=== PATIENT | male | born 1950 | race Caucasian/White ===

== ENCOUNTER → 2016-06-17 | Outpatient (CLI) | payer BC ==
[~2016-06-17] MED LIST: ATOR-26 PO; CHOL200027 PO; CYAN100048 PO; GLC500 PO; IBUP200C14 PO; INSDGI SC; INSUINJ8 SC; LISI-461 PO; NVLGI7030 SC; SIMV40TA2 PO
[2016-06-17 11:19] LABS: ALT/SGPT 22 U/L (12-78); BLOOD UREA NITROGEN 17 mg/dl (7-18); BUN/CREATININE RATIO 18.2 (10-20); CALCIUM 8.7 mg/dl (8.5-10.1); CARBON DIOXIDE 29 mmol/L (21-32); CHLORIDE 106 mmol/L (98-107); CHOLESTEROL 114 mg/dl (0-200); CREATININE 0.94 mg/dl (0.60-1.40); ESTIMATED AVERAGE GLUCOSE 212 mg/dl; GLUCOSE 166 mg/dl (70-99); HA1C FLAG Normal (Normal); POTASSIUM 4.1 mmol/L (3.5-5.1); SODIUM 140 mmol/L (136-145)
[2016-06-17 11:22] LABS: ALB/GLOB RATIO 1.2 (0.9-2); ALKALINE PHOSPHATASE 53 U/L (45-117); AST/SGOT 18 U/L (15-37); CHOLESTEROL/HDL RATIO 2.3; HDL CHOLESTEROL 49 mg/dl; LDL CHOLESTEROL CALCULATED 53 mg/dl; TRIGLYCERIDES 58 mg/dl (0-150); VERY LOW DENSITY LIPOPROT CALC 12 mg/dl
== END | disposition home or self-care (01) ==
LOC: C.LABBC 08:21
PROVIDERS: ATTEND Internal Medicine Endocrinology, Diabetes & Metabolism
DX: E78.5 Hyperlipidemia, unspecified (principal); E11.9 Type 2 diabetes mellitus without complications; E66.9 Obesity, unspecified; I10 Essential (primary) hypertension; E55.9 Vitamin D deficiency, unspecified; R20.0 Anesthesia of skin; R80.9 Proteinuria, unspecified; E11.42 Type 2 diabetes mellitus with diabetic polyneuropathy; E11.3599 Type 2 diabetes mellitus with proliferative diabetic retinopathy without macular edema, unspecified eye; B35.3 Tinea pedis; Z11.59 Encounter for screening for other viral diseases

== ENCOUNTER → 2016-09-29 | Outpatient (CLI) | payer BC ==
[2016-09-29 12:11] LABS: ESTIMATED AVERAGE GLUCOSE 214 mg/dl; HA1C FLAG Normal (Normal)
[2016-09-29 15:11] LABS: RATIO 28.8 mcg/mg (0-30.0)
== END | disposition home or self-care (01) ==
LOC: C.LAB1850 10:20
PROVIDERS: ATTEND Internal Medicine Endocrinology, Diabetes & Metabolism
DX: E66.9 Obesity, unspecified (principal); I10 Essential (primary) hypertension; E78.5 Hyperlipidemia, unspecified; E55.9 Vitamin D deficiency, unspecified; R20.0 Anesthesia of skin; R80.9 Proteinuria, unspecified; E11.42 Type 2 diabetes mellitus with diabetic polyneuropathy; E11.3599 Type 2 diabetes mellitus with proliferative diabetic retinopathy without macular edema, unspecified eye; E11.9 Type 2 diabetes mellitus without complications; B35.3 Tinea pedis

== ENCOUNTER → 2017-01-05 | Outpatient (CLI) | payer BC ==
[~2017-01-05] MED LIST changes: -ATOR-26 PO; -IBUP200C14 PO
[2017-01-05 13:01] LABS: ESTIMATED AVERAGE GLUCOSE 255 mg/dl; HA1C FLAG Normal (Normal)
== END | disposition home or self-care (01) ==
LOC: C.LAB1850 10:49
PROVIDERS: ATTEND Internal Medicine Endocrinology, Diabetes & Metabolism
DX: E11.9 Type 2 diabetes mellitus without complications (principal)

== ENCOUNTER → 2017-02-13 | Outpatient (CLI) | payer OTHER ==
--- NOTE | 2017-02-13 13:39 | DIAGNOSTIC IMAGING REPORT ---
L VENOUS DOPP LOWER EXT UNILAT HISTORY: 66 years-old Male LOWER LEG acute left lower extremity edema COMPARISON: None available TECHNIQUE: Multiple real-time sonographic images of the left lower extremity deep venous system were obtained assessing grayscale appearance, color and spectral flow FINDINGS: Mild nonspecific edema of the left calf. There is normal flow, augmentation, phasicity and compressibility of the left lower extremity deep venous system. IMPRESSION: Mild nonspecific edema without sonographic evidence of deep venous thrombosis. The above report was generated using voice recognition software. It may contain grammatical, syntax or spelling errors. Electronically signed by: Carlos Costa M.D. 02/13/2017 1:37 PM Dictated Date/Time: 02/13/2017 1:36 PM
== END | disposition home or self-care (01) ==
LOC: C.ULTRBC 12:52
PROVIDERS: ATTEND Nurse Practitioner Adult Health
DX: M79.662 Pain in left lower leg (principal)

== ENCOUNTER 2022-10-10 15:49 | Inpatient (IN) ==
[2022-10-10] MEDS ORDERED: SODIUM CHLORIDE 0.9% 1000ML 500 ML IV ONE (16:30)
[2022-10-10] MEDS ORDERED: MoRPHine SULFATE 4 MG/ML 1 ML CARP\\VIAL IV STA (16:30)
[2022-10-10] MEDS ORDERED: ONDANSETRON INJ 2 MG/ML 2 ML VIAL IV STA (16:30)
--- NOTE | 2022-10-10 16:34 | Emergency Department Note ---
Impression & Plan Gastro-esophageal reflux disease with esophagitis, Nausea and vomiting, Diffuse abdominal pain, JEMAL (acute kidney injury) ED Provider Note CHIEF COMPLAINT: Abdominal pain, nausea and vomiting HISTORY OF PRESENTING ILLNESS: This is a 72-year-old male who presents to the emergency department by private vehicle with complaint of left-sided abdominal pain, nausea and vomiting that started 5 days ago. Patient states that he ate shrimp for dinner on evening and started to have pain after that and vomited several times. He states the pain has been constant, is not relieved after vomiting, and he rates the pain 8/10. He has taken Tums, Zantac, and Pepto-Bismol with minimal relief. He notes that he has been having a lot of sensations of indigestion with this as well and the vomiting is worse at night or lying down. He states he is mostly vomiting up what he has been eating and drinking and has not been able to keep food down for the past few days. He states no appetite. He is able to keep down fluids. He has not had a normal bowel movement for the past 5 days, has had small amounts of diarrhea. He denies any blood in the vomit or stool. He has not had any fevers or chills. He denies any chest pain, chest tightness, shortness of breath, dizziness or syncope. The patient denies any history of abdominal problems or previous abdominal surgeries. REVIEW OF SYSTEMS: A complete 10 point review of systems was reviewed with the patient with pertinent positives and negatives as per history of present illness. All else were negative. PAST MEDICAL HISTORY: Hypertension, dyslipidemia, hypothyroidism, type 2 diabetes, peripheral neuropathy, peripheral vascular disease, arterial stenosis SOCIAL HISTORY: Lives at home, he denies tobacco use ALLERGIES: No known drug allergies PHYSICAL EXAM: CONSTITUTIONAL: Pleasant and cooperative. No acute distress. Well appearing and well nourished. HEENT: Normocephalic, atraumatic. NECK: Supple, full active range of motion without discomfort. RESPIRATORY: Clear to auscultation bilaterally with no wheezing, crackles, rhonchi or stridor. Equal expansion bilaterally. CARDIOVASCULAR: Regular rate and rhythm with no murmurs, rubs or gallops. Normal peripheral perfusion. No edema. GASTROINTESTINAL: Diffuse tenderness across the left and mid upper abdomen, most tender in the left upper quadrant and epigastric region. No rebound tenderness or guarding. Abdomen is nontender tender in the right upper quadrant and right lower quadrant. Abdomen is soft and moderately distended, obese abdomen. No palpable masses or HSM. Ventral hernia noted. Bowel sounds present in all quadrants. No CVA tenderness bilaterally. MUSCULOSKELETAL: Full range of motion of all joints without discomfort. INTEGUMENTARY: No rash or other significant dermatologic conditions noted. NEUROLOGIC: Alert and oriented X 4 with normal affect. Normal strength and sensation in all 4 extremities. Normal speech. Normal gait observed. ED COURSE AND MEDICAL DECISION MAKING: CC: Patient presenting with complaint of abdominal pain DIFFERENTIAL DIAGNOSIS: Includes, but not limited to gastroenteritis, foodborne illness, gastritis, GERD, pancreatitis, cholecystitis, cholelithiasis, small bowel obstruction, acute coronary syndrome, electrolyte imbalance, dehydration, among others. INTERPRETATION OF LABS: No leukocytosis, no anemia, normal platelets, hypercalcemia, no other significant electrolyte abnormalities, mildly elevated creatinine, normal liver enzymes and lipase. Troponin negative. UA negative for infection. COVID-negative. EKG: Indication is abdominal pain. Shows normal sinus rhythm with a rate of 73 bpm, normal intervals, no ST elevation or depression, no ectopy, no significant change when compared to previous EKG from 10/27/2013 by my interpretation. MEDICATION RECONCILIATION: I attest that I have personally reviewed the patient's current medication list. INITIAL VITAL SIGNS REVIEW: I reviewed the patient's initial vital signs and interpret them as follows: T: Afebrile; BP: Normotensive; HR: Within normal limits; RR: Within normal limits; Pulse Ox: Within normal limits on room air. MDM SUMMARY: Patient was evaluated at bedside, history and physical exam performed. Patient is alert and oriented, in no acute distress, resting calmly in the stretcher. Patient is afebrile and nontoxic-appearing. He is not actively vomiting, but does complain of nausea. Abdominal tenderness diffusely through the left side and across the mid abdomen, most tender in left upper quadrant. No acute abdomen. Initial orders were performed under critical pathways by nursing staff, EKG and labs performed. EKG reviewed showing normal sinus rhythm with no acute ischemic changes. Additional orders were placed for IV morphine to treat pain, IV Zofran for nausea, IV fluid bolus for hydration, and CT abdomen/pelvis to evaluate abdominal pain. Lab order for troponin was also added. Patient discussed with Dr. Marinelli, who also evaluated the patient and agrees with my assessment, plan, and disposition. Labs and imaging reviewed, labs notable for hypercalcemia and mild JEMAL. CT imaging noting nonspecific wall thickening of the distal esophagus and gastroesophageal junction which could indicate infectious or inflammatory process, or an underlying lesion. Also note of subcentimeter periesophageal and gastrohepatic lymph nodes and cholelithiasis with no bowel obstruction. Patient reassessed multiple times throughout ED stay, he has remained hemodynamically stable and afebrile, he has not been actively vomiting but continues to complain of upper abdominal discomfort and nausea. Dr. Marinelli and myself discussed at length with the patient regarding his results and the option of admission regarding his hypercalcemia of unclear etiology, the patient was agreeable to admission. The patient is being admitted by the [facility]. COVID testing was negative. Patient was stable at the time of admission. The chart was completed utilizing [employer] Speech voice recognition software. Grammatical errors, random word insertions, pronoun errors, and incomplete sentences are an occasional consequence of this system due to software limitations, ambient noise, and hardware issues. Any formal questions or concerns about the content, text, or information contained within the body of this dictation should be directly addressed to the nurse practitioner for clarification. Past Med/Surg History Surgical History History of lithotripsy S/P carpal tunnel release S/P wisdom tooth extraction Family History Unknown Cancer Father Diabetes Brother Colorectal cancer Denies family history of Ovarian cancer Prostate cancer Myocardial infarction Breast cancer Social History Smoking Status: Never smoker Second Hand Exposure: No; Do You Dip or Chew Tobacco: No; Hx Alcohol Use: Yes Alcohol type: beer Alcohol Intake Frequency: 2-4 x/Month Alcohol Intake Frequency Comment: 1-2 beers a week Hx Substance Use: No Preferred Language: Guyanese Communication Ability: Effective Visual Impairment: No Limitations Hearing Ability: Normal Broiler Supervisor Required: No Beliefs That Will Affect Care: None marital status: Current Living Situation: Spouse current occupational status: retired current occupation: used to drive truck Feels Safe at Home: Yes Childhood Exposure to Second-Hand Smoke: No Diet: regular caffeine: No during the past year weight has: remained stable Dental Care, Regularly: No Physical Activity Frequency: Does not Exercise Seatbelt Use: always Sunscreen Use: Yes Assistive Devices: Denture - Upper, Denture - Lower and Glasses Allergies Allergies Allergy/AdvReac Type Severity Reaction Status Date / Time No Known Drug Allergies Allergy Verified 10/10/22 18:45 Home Meds Home Medications Medication Instructions Recorded Confirmed cholecalciferol (vitamin D3) 125 5,000 units PO DAILY 12/03/18 10/10/22 mcg (5,000 unit) capsule hydrochlorothiazide 25 mg tablet 25 mg PO DAILY #30 tabs 12/03/18 10/10/22 lisinopril 40 mg tablet 40 mg PO DAILY #1 tab 12/03/18 10/10/22 metformin 1,000 mg tablet 1,000 mg PO BID 12/03/18 10/10/22 aspirin 81 mg tablet 81 mg PO DAILY 08/09/20 10/10/22 cyanocobalamin (vitamin B-12) 1,000 mcg PO DAILY 08/09/20 10/10/22 1,000 mcg tablet insulin aspart U-100 100 unit/mL 18 unit subcut BID 11/26/20 10/10/22 subcutaneous solution (Novolog U-100 Insulin aspart) insulin glargine 100 unit/mL 16 unit subcut HS 11/26/20 10/10/22 subcutaneous solution (Lantus U-100 Insulin) blood sugar diagnostic (Accu-Chek 01/23/22 10/10/22 Guide test strips) gabapentin 1 ea PO BID 01/23/22 10/10/22 insulin syringe-needle U-100 0.5 #10 ea 01/23/22 10/10/22 mL 31 gauge x 5/16" (BD Insulin Syringe Ultra-Fine) simvastatin 80 mg tablet 80 mg PO DAILY 08/14/22 10/10/22 Previous Rx's Medication Instructions Recorded levothyroxine 88 mcg tablet 88 mcg PO QAM #90 tabs 02/07/22 ezetimibe 10 mg tablet 10 mg PO DAILY #90 tabs 08/14/22 Results & Data (ED) Vital Signs Vital Signs - 24 hr 10/10/22 15:50 10/10/22 16:28 10/10/22 17:34 Temperature 36.1 C L Temperature Source Temporal Artery Scan Pulse Rate 89 Pulse Rate [Apical] 75 77 Respiratory Rate 18 20 20 Respiratory Effort / Characteristics Non-Labored Respiratory Depth Normal Blood Pressure 128/72 Blood Pressure [Right Arm] 138/62 137/56 L Blood Pressure Mean 90 Blood Pressure Mean [Right Arm] 87 83 Pulse Oximetry 98 96 98 Oxygen Delivery Method Room Air Room Air Room Air Sepsis Recent Fever Within 48 Hours No Sepsis New/Unexplained Change in Mental Status No Sepsis Action Taken by Nursing No Action Required 10/10/22 18:19 Temperature Temperature Source Pulse Rate Pulse Rate [Apical] 78 Respiratory Rate 20 Respiratory Effort / Characteristics Respiratory Depth Blood Pressure Blood Pressure [Right Arm] 142/65 H Blood Pressure Mean Blood Pressure Mean [Right Arm] 90 Pulse Oximetry 99 Oxygen Delivery Method Room Air Sepsis Recent Fever Within 48 Hours Sepsis New/Unexplained Change in Mental Status Sepsis Action Taken by Nursing Laboratory Data 10/10/22 16:04 10/10/22 16:04 Lab Results 10/10/22 10/10/22 10/10/22 Range/Units 16:04 16:04 19:46 WBC 8.18 (4.8-10.8) K/ul RBC 4.63 L (4.70-6.10) M/uL Hgb 15.0 (14.0-18.0) g/dl Hct 42.5 (42.0-52.0) % MCV 91.8 (80.0-100.0) fL MCH 32.4 (25.0-34.0) pg MCHC 35.3 (32.0-36.0) g/dL RDW Std Deviation 41.1 (36.4-46.3) fL RDW Coeff of Elsa 12.5 (11.5-14.5) % Plt Count 224 (130-400) K/uL MPV 11.9 (9.4-12.4) fL Immature Gran % (Auto) 0.4 % Neut % (Auto) 67.5 % Lymph % (Auto) 20.7 % [place] % (Auto) 9.9 % Eos % (Auto) 0.9 % Baso % (Auto) 0.6 % Neut # (Auto) 5.53 (1.40-6.50) K/uL Lymph # (Auto) 1.69 (1.2-3.4) K/uL [place] # (Auto) 0.81 H (0.11-0.59) K/uL Eos # (Auto) 0.07 (0-0.50) K/uL Baso # (Auto) 0.05 (0-0.2) K/uL Immature Gran # (Auto) 0.03 (0.01-0.20) K/uL Sodium 139 (136-145) mmol/L Potassium 3.9 (3.5-5.1) mmol/L Chloride 101 (98-107) mmol/L Carbon Dioxide 27 (21-32) mmol/L Anion Gap 11 (3-11) BUN 23 (6-23) mg/dl Creatinine 1.63 H (0.6-1.4) mg/dl Est Cr Clr Drug Dosing 45.4 ml/min Est GFR ( Amer) 48.1 ml/min Est GFR (Non-Af Amer) 41.5 ml/min BUN/Creatinine Ratio 14.1 (10-20) Glucose 125 H (70-99(Fasting)) mg/dl POC Glucose 74 (70-99) mg/dl Calcium 12.1 H* (8.6-10.3) mg/dl Total Bilirubin 0.7 (0.2-1.0) mg/dl AST 25 (13-39) U/L ALT 20 (7-52) U/L Alkaline Phosphatase 47 (34-104) U/L Troponin I High Sens 11.3 (0-20) pg/ml Total Protein 7.4 (6.0-8.3) gm/dl Albumin 4.5 (3.4-5.0) gm/dl Globulin 2.9 (2.5-4.0) gm/dl Albumin/Globulin Ratio 1.6 (0.9-2) Lipase 13 (11-82) U/L Urine Color Urine Appearance (Clear) Urine pH (4.5-7.5) Ur Specific [place] (1.000-1.030) Urine Protein (Negative) Urine Glucose (UA) (Negative) Urine Ketones (Negative) Urine Blood (Negative) Urine Nitrite (Negative) Urine Bilirubin (Negative) Urine Urobilinogen (Negative) Ur Leukocyte Esterase (Negative) Urine WBC (Auto) (0-5) /hpf Urine RBC (Auto) (0-4) /hpf U Hyaline Cast (Auto) (0-5) /lpf U Epithel Cells (Auto) (0-5) /lpf Urine Bacteria (Auto) (Negative) SARS-CoV-2, RNA, NAAT (NEGATIVE) 10/10/22 10/10/22 Range/Units 19:50 20:11 WBC (4.8-10.8) K/ul RBC (4.70-6.10) M/uL Hgb (14.0-18.0) g/dl Hct (42.0-52.0) % MCV (80.0-100.0) fL MCH (25.0-34.0) pg MCHC (32.0-36.0) g/dL RDW Std Deviation (36.4-46.3) fL RDW Coeff of Elsa (11.5-14.5) % Plt Count (130-400) K/uL MPV (9.4-12.4) fL Immature Gran % (Auto) % Neut % (Auto) % Lymph % (Auto) % [place] % (Auto) % Eos % (Auto) % Baso % (Auto) % Neut # (Auto) (1.40-6.50) K/uL Lymph # (Auto) (1.2-3.4) K/uL [place] # (Auto) (0.11-0.59) K/uL Eos # (Auto) (0-0.50) K/uL Baso # (Auto) (0-0.2) K/uL Immature Gran # (Auto) (0.01-0.20) K/uL Sodium (136-145) mmol/L Potassium (3.5-5.1) mmol/L Chloride (98-107) mmol/L Carbon Dioxide (21-32) mmol/L Anion Gap (3-11) BUN (6-23) mg/dl Creatinine (0.6-1.4) mg/dl Est Cr Clr Drug Dosing ml/min Est GFR ( Amer) ml/min Est GFR (Non-Af Amer) ml/min BUN/Creatinine Ratio (10-20) Glucose (70-99(Fasting)) mg/dl POC Glucose (70-99) mg/dl Calcium (8.6-10.3) mg/dl Total Bilirubin (0.2-1.0) mg/dl AST (13-39) U/L ALT (7-52) U/L Alkaline Phosphatase (34-104) U/L Troponin I High Sens (0-20) pg/ml Total Protein (6.0-8.3) gm/dl Albumin (3.4-5.0) gm/dl Globulin (2.5-4.0) gm/dl Albumin/Globulin Ratio (0.9-2) Lipase (11-82) U/L Urine Color Yellow Urine Appearance Clear (Clear) Urine pH 5.0 (4.5-7.5) Ur Specific [place] > 1.045 H (1.000-1.030) Urine Protein 1+ H (Negative) Urine Glucose (UA) Negative (Negative) Urine Ketones Negative (Negative) Urine Blood Negative (Negative) Urine Nitrite Negative (Negative) Urine Bilirubin Negative (Negative) Urine Urobilinogen Negative (Negative) Ur Leukocyte Esterase Negative (Negative) Urine WBC (Auto) 1-5 (0-5) /hpf Urine RBC (Auto) 0-4 (0-4) /hpf U Hyaline Cast (Auto) 1-5 (0-5) /lpf U Epithel Cells (Auto) 10-20 H (0-5) /lpf Urine Bacteria (Auto) Negative (Negative) SARS-CoV-2, RNA, NAAT NEGATIVE (NEGATIVE) Administered Medications Sodium Chloride (Nss 1000ml) 1,000 mls @ 100 mls/hr IV .Q10H TAVO Stop: 11/09/22 22:39 Last Admin: 10/10/22 23:19 Dose: 100 mls/hr Documented By: TMD Insulin Aspart (Insulin Aspart Per Unit Charge) 0 units SC ACHS TAVO Stop: 11/09/22 22:39 Last Admin: 10/10/22 22:50 Dose: Not Given Documented By: TMD Discontinued Medications Sodium Chloride (Nss 1000ml) 500 mls @ 999 mls/hr IV .Q31M ONE Stop: 10/10/22 17:00 Last Infusion: 10/10/22 17:12 Dose: 0 mls/hr Documented By: Admin: 10/10/22 16:41 Dose: 999 mls/hr Documented By: Sodium Chloride (Nss 1000ml) 1,000 mls @ 999 mls/hr IV .Q1H1M ONE Stop: 10/10/22 18:03 Last Infusion: 10/10/22 18:16 Dose: 0 mls/hr Documented By: Admin: 10/10/22 17:12 Dose: 999 mls/hr Documented By: Famotidine (Pepcid 20mg Iv Push) 20 mg in 5 mls @ 2.5 mls/min IV NOW STA Stop: 10/10/22 19:15 Last Admin: 10/10/22 19:43 Dose: 2.5 mls/min Documented By: EMILY Pantoprazole Sodium 40 mg/ (Syringe) 10 mls @ 5 mls/min IV NOW ONE Stop: 10/10/22 20:20 Last Admin: 10/10/22 20:45 Dose: 5 mls/min Documented By: MICHAEL Ioversol (Optiray 320 100ml) 94 ml IV ONCE ONE Stop: 10/10/22 17:54 Last Admin: 10/10/22 17:54 Dose: 94 ml Documented By: JIM Morphine Sulfate (Morphine Sulfate 4 Mg/Ml 1 Ml Carp\\Vial) 4 mg IV NOW STA Stop: 10/10/22 16:31 Last Admin: 10/10/22 16:40 Dose: 4 mg Documented By: Ondansetron HCl (Ondansetron Inj 2 Mg/Ml 2 Ml Vial) 4 mg IV NOW STA Stop: 10/10/22 16:31 Last Admin: 10/10/22 16:38 Dose: 4 mg Documented By: Ondansetron HCl (Ondansetron Inj 2 Mg/Ml 2 Ml Vial) 4 mg IV ONE ONE Stop: 10/10/22 20:20 Last Admin: 10/10/22 20:45 Dose: 4 mg Documented By: MICHAEL Imaging Data Radiologist's Impression: Abdomen/Pelvis CT 10/10/22 16:[address] WITH IV CONTRAST CT DOSE: 1382.12 mGy.cm HISTORY: Acute left-sided abdominal pain with nausea and vomiting left sided abd pain, n/v TECHNIQUE: Multiaxial CT images of the abdomen and pelvis were performed following the IV administration of 120 cc of Optiray, A dose lowering technique was utilized adhering to the principles of ALARA. COMPARISON STUDY: 12/15/2019 FINDINGS: Mild cardiomegaly. Clear lung bases. No pneumatosis or pneumoperitoneum. Unremarkable spleen, moderately atrophic pancreas and adrenal glands. Cholelithiasis. Probable hepatic steatosis. Patency of the hepatic and portal veins. Nonspecific bilateral perinephric stranding. No hydronephrosis. The urinary bladder wall thickening with partial collapse. Prostatomegaly. Ather osclerosis of the aorta. No lymphadenopathy. Circumferential wall thickening of the distal esophagus with mild periesophageal stranding. Mild thickening at the gastroesophageal junction. No bowel obstruction. Colonic diverticulosis. Normal appendix. Injection granulomata in the subcutaneous anterior abdominal wall. Subcentimeter gastrohepatic and periesophageal lymph nodes. No acute fracture. Degenerative changes of the spine, pelvis and hips. IMPRESSION: 1. Nonspecific wall thickening of the distal esophagus and gastroesophageal junction. Findings may be infectious or inflammatory however could be further evaluated with endoscopy to exclude an underlying lesion. 2. Subcentimeter periesophageal and gastrohepatic lymph nodes. 3. No bowel obstruction. 4. Cholelithiasis. 5. Additional findings as above. ACT 112: Negative or not required by law. The above report was generated using voice recognition software. It may contain grammatical, syntax or spelling errors. Electronically signed by: Maksim Costa M.D. 10/10/2022 7:02 PM Discharge Plan Visit Data Chief Complaint: GI Assessment Stated Complaint: INJESTION,VOMIT,NO APPETITE ED Provider: Dixon Marinelli ED Midlevel Provider: Keeley Sears Discharge Problem: Gastro-esophageal reflux disease with esophagitis, Nausea and vomiting, Diffuse abdominal pain, JEMAL (acute kidney injury) Patient Disposition: Admitted As Inpatient Condition: Good Discharge Instructions Interventions: ED Discharge Assessment Last Done: 10/10/22 21:51
[2022-10-10 16:37] LABS: Basophils # (auto) 0.05 K/uL (0-0.2); Basophils % (auto) 0.6 %; Eosinophils # (auto) 0.07 K/uL (0-0.50); Eosinophils % (auto) 0.9 %; Hematocrit (blood only) 42.5 % (42.0-52.0); Immature Granulocytes # (auto) 0.03 K/uL (0.01-0.20); Immature Granulocytes % (auto) 0.4 %; Lymphocytes # (auto) 1.69 K/uL (1.2-3.4); Lymphocytes % (auto) 20.7 %; Mean Corpuscular Hemoglobin 32.4 pg (25.0-34.0); Mean Corpuscular Hgb Conc 35.3 g/dL (32.0-36.0); Mean Corpuscular Volume 91.8 fL (80.0-100.0); Mean Platelet Volume 11.9 fL (9.4-12.4); Monocytes # (auto) 0.81 K/uL (0.11-0.59); Monocytes % (auto) 9.9 %; Neutrophils # (auto) 5.53 K/uL (1.40-6.50); Neutrophils % (auto) 67.5 %; Platelet Count 224 K/uL (130-400); RDW Coefficient of Variation 12.5 % (11.5-14.5); RDW Standard Deviation 41.1 fL (36.4-46.3); Red Blood Count 4.63 M/uL (4.70-6.10); White Blood Count 8.18 K/ul (4.8-10.8)
[2022-10-10 16:54] LABS: Albumin Globulin Ratio 1.6 (0.9-2); Albumin Level 4.5 gm/dl (3.4-5.0); BUN Creatinine Ratio 14.1 (10-20); Bilirubin,Total 0.7 mg/dl (0.2-1.0); Calcium 12.1 mg/dl (8.6-10.3); Creatinine Clr Calc Pharmacy 45.4 ml/min; Est GFR (African American) 48.1 ml/min; Est GFR (Non-African American) 41.5 ml/min; Globulin 2.9 gm/dl (2.5-4.0); Potassium 3.9 mmol/L (3.5-5.1); Total Protein 7.4 gm/dl (6.0-8.3)
[2022-10-10] MEDS ORDERED: SODIUM CHLORIDE 0.9% 1000ML 1,000 ML IV ONE (17:03)
[2022-10-10 17:16] LABS: Troponin I High Sensitivity 11.3 pg/ml (0-20)
[2022-10-10] MEDS ORDERED: OPTIRAY 320 100ml IV ONE (17:53)
--- NOTE | 2022-10-10 19:03 | CT Scan Report ---
ABDOMEN AND PELVIS CT WITH IV CONTRAST CT DOSE: 1382.12 mGy.cm HISTORY: Acute left-sided abdominal pain with nausea and vomiting left sided abd pain, n/v TECHNIQUE: Multiaxial CT images of the abdomen and pelvis were performed following the IV administrat ion of 120 cc of Optiray, A dose lowering technique was utilized adhering to the principles of ALARA . COMPARISON STUDY: 12/15/2019 FINDINGS: Mild cardiomegaly. Clear lung bases. No pneumatosis or pneumoperitoneum. Unremarkable splee n, moderately atrophic pancreas and adrenal glands. Cholelithiasis. Probable hepatic steatosis. Paten cy of the hepatic and portal veins. Nonspecific bilateral perinephric stranding. No hydronephrosis. T he urinary bladder wall thickening with partial collapse. Prostatomegaly. Atherosclerosis of the aort a. No lymphadenopathy. Circumferential wall thickening of the distal esophagus with mild periesophageal stranding. Mild thic kening at the gastroesophageal junction. No bowel obstruction. Colonic diverticulosis. Normal appendi x. Injection granulomata in the subcutaneous anterior abdominal wall. Subcentimeter gastrohepatic and periesophageal lymph nodes. No acute fracture. Degenerative changes of the spine, pelvis and hips. IMPRESSION: 1. Nonspecific wall thickening of the distal esophagus and gastroesophageal junction. Findings may be infectious or inflammatory however could be further evaluated with endoscopy to exclude an underlyin g lesion. 2. Subcentimeter periesophageal and gastrohepatic lymph nodes. 3. No bowel obstruction. 4. Cholelithiasis. 5. Additional findings as above. ACT 112: Negative or not required by law. The above report was generated using voice recognition software. It may contain grammatical, syntax o r spelling errors. Electronically signed by: Maksim Costa M.D. 10/10/2022 7:02 PM
[2022-10-10] MEDS ORDERED: FAMOTIDINE 20MG IV PUSH 20 MG/5 ML SYR IV STA (19:14)
[2022-10-10] MEDS ORDERED: PANTOprazole 40 MG in SYRINGE 0 ML IV ONE (20:19)
[2022-10-10] MEDS ORDERED: ONDANSETRON INJ 2 MG/ML 2 ML VIAL IV ONE (20:19)
[2022-10-10 20:23] LABS: Appearance Urine Clear (Clear); Bacteria Urine Automated Negative (Negative); Bilirubin Urine Negative (Negative); Blood Urine Negative (Negative); Color Urine Yellow; Glucose Urine UA Negative (Negative); Ketones Urine Negative (Negative); Leukocyte Esterase Urine Negative (Negative); Nitrite Urine Negative (Negative); Protein Urine 1+ (Negative); RBC Urine Automated 0-4 /hpf (0-4); Specific Gravity Urine > 1.045 (1.000-1.030); Urobilinogen Urine Negative (Negative)
--- NOTE | 2022-10-10 20:34 | History & Physical Report ---
Date of Service October 10, 2022 Assessment & Plan (1) Gastro-esophageal reflux disease with esophagitis: (2) Nausea and vomiting: (3) Diffuse abdominal pain: (4) JEMAL (acute kidney injury): (5) Dyslipidemia: (6) Hypertension: (7) Hypothyroidism: (8) Proliferative diabetic retinopathy associated with type 2 diabetes mellitus: (9) Diabetic peripheral neuropathy associated with type 2 diabetes mellitus: (10) Hypercalcemia: Plan Intractable nausea and vomiting with abdominal pain/distal esophageal and GE junction thickening- Likely toxin associated food poisoning amplifying diabetic gastroparesis CT scan abdomen pelvis does not show small bowel obstruction or ileus N.p.o. except essential medications Given famotidine 20 mg IV by the ED Add pantoprazole 40 mg IV now and then every 12 hours Zofran 4 mg IV every 6 hours as needed Question whether related to esophagitis associated vomiting, or pre-existing issue Consult gastroenterology Acute kidney injury on CKD- Creatinine 1.63 on admission, with base around 1.2, improved to 1.52, after receiving 2 liters normal saline Continue normal saline at 100 mils per hour Hold HCTZ and lisinopril Hypercalcemia- Calcium 12.2 on admission, improved to 10.5 after 2 L normal saline Continue normal saline at 100 mils per hour and follow laboratory serially Diabetes mellitus- Hold outpatient regimen Placed on Accu-Cheks with NovoLog SSI Hyperlipidemia- Hold simvastatin until taking orally okay Hypothyroidism- Hold levothyroxine until able to take pills without vomiting History of Present Illness Chief Complaint: The patient presents to the emergency department with complaint of 5 days of abdominal pain, nausea and vomiting that began a few hours after eating shrimp at dinner. Primary Care Provider: Kojo Soria DO The patient is a 72-year-old male with a past medical history including GERD, vitamin D deficiency, proliferative diabetic retinopathy, diabetes mellitus, hypothyroidism, hypertension, diabetic peripheral neuropathy, peripheral vascular disease, PAD, obesity and chronic low back pain. Patient presents to the emergency department with with persistent nausea and vomiting for the past 5 days that began a few hours after eating shrimp at a local restaurant. Significant laboratories: Glucose 125, creatinine 1.63, calcium 12.1 which improved to 10.[address] of abdomen and pelvis showed thickening of the distal esophagus and GE junction, with suggestion for EGD for confirmation, and paraesophageal and gastrohepatic lymph node enlargement. From the ED the patient received the following: Normal saline 2 L, morphine sulfate 4 mg IV, Zofran 4 mg IV. and famotidine 20 mg IV Allergies Allergy/AdvReac Type Severity Reaction Status Date / Time No Known Drug Allergies Allergy Verified 10/10/22 18:45 Home Medications Medication Instructions Recorded Confirmed Type cholecalciferol (vitamin D3) 125 5,000 units PO DAILY 12/03/18 10/10/22 History mcg (5,000 unit) capsule hydrochlorothiazide 25 mg tablet 25 mg PO DAILY #30 tabs 12/03/18 10/10/22 History lisinopril 40 mg tablet 40 mg PO DAILY #1 tab 12/03/18 10/10/22 History metformin 1,000 mg tablet 1,000 mg PO BID 12/03/18 10/10/22 History aspirin 81 mg tablet 81 mg PO DAILY 08/09/20 10/10/22 History cyanocobalamin (vitamin B-12) 1,000 mcg PO DAILY 08/09/20 10/10/22 History 1,000 mcg tablet insulin aspart U-100 100 unit/mL 18 unit subcut BID 11/26/20 10/10/22 History subcutaneous solution (Novolog U-100 Insulin aspart) insulin glargine 100 unit/mL 16 unit subcut HS 11/26/20 10/10/22 History subcutaneous solution (Lantus U-100 Insulin) blood sugar diagnostic (Accu-Chek 01/23/22 10/10/22 History Guide test strips) gabapentin 1 ea PO BID 01/23/22 10/10/22 History insulin syringe-needle U-100 0.5 #10 ea 01/23/22 10/10/22 History mL 31 gauge x 5/16" (BD Insulin Syringe Ultra-Fine) levothyroxine 88 mcg tablet 88 mcg PO QAM #90 tabs 02/07/22 10/10/22 Rx ezetimibe 10 mg tablet 10 mg PO DAILY #90 tabs 08/14/22 10/10/22 Rx simvastatin 80 mg tablet 80 mg PO DAILY 08/14/22 10/10/22 History Past Med/Surg History Surgical History History of lithotripsy S/P carpal tunnel release S/P wisdom tooth extraction Family History Unknown Cancer Father Diabetes Brother Colorectal cancer Denies family history of Ovarian cancer Prostate cancer Myocardial infarction Breast cancer Social History Smoking Status: Never smoker Second Hand Exposure: No; Do You Dip or Chew Tobacco: No; Hx Alcohol Use: Yes Alcohol type: beer Alcohol Intake Frequency: 2-4 x/Month Alcohol Intake Frequency Comment: 1-2 beers a week Hx Substance Use: No Preferred Language: Frisian Communication Ability: Effective Visual Impairment: No Limitations Hearing Ability: Normal Tax Auditor Required: No Beliefs That Will Affect Care: None marital status: Current Living Situation: Spouse current occupational status: retired current occupation: used to drive truck Feels Safe at Home: Yes Childhood Exposure to Second-Hand Smoke: No Diet: regular caffeine: No during the past year weight has: remained stable Dental Care, Regularly: No Physical Activity Frequency: Does not Exercise Seatbelt Use: always Sunscreen Use: Yes Assistive Devices: Denture - Upper, Denture - Lower and Glasses Review of Systems Review of Systems: The patient denies chest pain, palpitations, shortness of breath, dyspnea on exertion, cough, lower extremity swelling, sore throat, fevers, chills, sweats, diarrhea , constipation, blood in urine or stool, dysuria, urinary frequency or urgency, lightheadedness, dizziness, headache, memory loss, loss of consciousness, rash, abnormal bruising or bleeding, imbalance, focal or generalized weakness, numbness or tingling in arms, generalized arthralgias or myalgias, neck pain, or night sweats. The review of systems is otherwise negative other than for that already noted above, and at least 10 systems have been reviewed. Physical Exam Physical Exam: The patient is awake, alert and oriented 3, well developed and well nourished, normocephalic and atraumatic, lying in bed with a few episodes of vomiting while in the ED HEENT--PERRL, EOMI, mucous membranes and oropharynx dry. Neck--supple. No JVD. No bruits. Thyroid normal, trachea midline, no adenopathy. Heart--normal S1 and S2. No murmurs, rubs or gallops. Lungs--clear bilaterally, no respiratory distress, no accessory muscle use. Abdomen--normal bowel sounds and soft. Nontender. Nondistended, tympanitic Extremities--no cyanosis or clubbing. No edema. Dermatologic--normal skin turgor, normal color, no abnormal lymph nodes, no rash. Neurologic--cranial nerves II through XII grossly intact. Rheumatologic--normal range of motion. Psychiatric--normal affect. Results & Data Results & Data Vital Signs (Past 12 Hours) Vital Signs Temp Pulse Pulse Resp BP BP Pulse Ox 10/10/22 18:19 78 20 142/65 H 99 10/10/22 17:34 77 20 137/56 L 98 10/10/22 16:28 75 20 138/62 96 10/10/22 15:50 36.1 C L 89 18 128/72 98 O2 Del Method 10/10/22 18:19 Room Air 10/10/22 17:34 Room Air 10/10/22 16:28 Room Air 10/10/22 15:50 Room Air Laboratory Results Laboratory Results WBC 8.18 K/ul (4.8-10.8) 10/10/22 16:04 RBC 4.63 M/uL (4.70-6.10) L 10/10/22 16:04 Hgb 15.0 g/dl (14.0-18.0) 10/10/22 16:04 Hct 42.5 % (42.0-52.0) 10/10/22 16:04 MCV 91.8 fL (80.0-100.0) 10/10/22 16:04 MCH 32.4 pg (25.0-34.0) 10/10/22 16:04 MCHC 35.3 g/dL (32.0-36.0) 10/10/22 16:04 RDW Std Deviation 41.1 fL (36.4-46.3) 10/10/22 16:04 RDW Coeff of Elsa 12.5 % (11.5-14.5) 10/10/22 16:04 Plt Count 224 K/uL (130-400) 10/10/22 16:04 MPV 11.9 fL (9.4-12.4) 10/10/22 16:04 Immature Gran % (Auto) 0.4 % 10/10/22 16:04 Neut % (Auto) 67.5 % 10/10/22 16:04 Lymph % (Auto) 20.7 % 10/10/22 16:04 [place] % (Auto) 9.9 % 10/10/22 16:04 Eos % (Auto) 0.9 % 10/10/22 16:04 Baso % (Auto) 0.6 % 10/10/22 16:04 Neut # (Auto) 5.53 K/uL (1.40-6.50) 10/10/22 16:04 Lymph # (Auto) 1.69 K/uL (1.2-3.4) 10/10/22 16:04 [place] # (Auto) 0.81 K/uL (0.11-0.59) H 10/10/22 16:04 Eos # (Auto) 0.07 K/uL (0-0.50) 10/10/22 16:04 Baso # (Auto) 0.05 K/uL (0-0.2) 10/10/22 16:04 Immature Gran # (Auto) 0.03 K/uL (0.01-0.20) 10/10/22 16:04 Sodium 140 mmol/L (136-145) 10/10/22 20:57 Potassium 4.1 mmol/L (3.5-5.1) 10/10/22 20:57 Chloride 105 mmol/L (98-107) 10/10/22 20:57 Carbon Dioxide 26 mmol/L (21-32) 10/10/22 20:57 Anion Gap 9 (3-11) 10/10/22 20:57 BUN 23 mg/dl (6-23) 10/10/22 20:57 Creatinine 1.52 mg/dl (0.6-1.4) H 10/10/22 20:57 Est Cr Clr Drug Dosing 48.7 ml/min 10/10/22 20:57 Est GFR ( Amer) 52.3 ml/min 10/10/22 20:57 Est GFR (Non-Af Amer) 45.1 ml/min 10/10/22 20:57 BUN/Creatinine Ratio 15.1 (10-20) 10/10/22 20:57 Glucose 111 mg/dl (70-99(Fasting)) H 10/10/22 20:57 POC Glucose 112 mg/dl (70-99) H 10/10/22 22:21 Calcium 10.5 mg/dl (8.6-10.3) H 10/10/22 20:57 Phosphorus 4.7 mg/dl (2.5-4.9) 10/10/22 20:57 Total Bilirubin 0.7 mg/dl (0.2-1.0) 10/10/22 16:04 AST 25 U/L (13-39) 10/10/22 16:04 ALT 20 U/L (7-52) 10/10/22 16:04 Alkaline Phosphatase 47 U/L (34-104) 10/10/22 16:04 Troponin I High Sens 11.3 pg/ml (0-20) 10/10/22 16:04 Total Protein 7.4 gm/dl (6.0-8.3) 10/10/22 16:04 Albumin 3.7 gm/dl (3.4-5.0) 10/10/22 20:57 Globulin 2.9 gm/dl (2.5-4.0) 10/10/22 16:04 Albumin/Globulin Ratio 1.6 (0.9-2) 10/10/22 16:04 Lipase 13 U/L (11-82) 10/10/22 16:04 Urine Color Yellow 10/10/22 19:50 Urine Appearance Clear (Clear) 10/10/22 19:50 Urine pH 5.0 (4.5-7.5) 10/10/22 19:50 Ur Specific [place] > 1.045 (1.000-1.030) H 10/10/22 19:50 Urine Protein 1+ (Negative) H 10/10/22 19:50 Urine Glucose (UA) Negative (Negative) 10/10/22 19:50 Urine Ketones Negative (Negative) 10/10/22 19:50 Urine Blood Negative (Negative) 10/10/22 19:50 Urine Nitrite Negative (Negative) 10/10/22 19:50 Urine Bilirubin Negative (Negative) 10/10/22 19:50 Urine Urobilinogen Negative (Negative) 10/10/22 19:50 Ur Leukocyte Esterase Negative (Negative) 10/10/22 19:50 Urine WBC (Auto) 1-5 /hpf (0-5) 10/10/22 19:50 Urine RBC (Auto) 0-4 /hpf (0-4) 10/10/22 19:50 U Hyaline Cast (Auto) 1-5 /lpf (0-5) 10/10/22 19:50 U Epithel Cells (Auto) 10-20 /lpf (0-5) H 10/10/22 19:50 Urine Bacteria (Auto) Negative (Negative) 10/10/22 19:50 SARS-CoV-2, RNA, NAAT NEGATIVE (NEGATIVE) 10/10/22 20:11 Impressions Abdomen/Pelvis CT 10/10/22 16:[address] WITH IV CONTRAST CT DOSE: 1382.12 mGy.cm HISTORY: Acute left-sided abdominal pain with nausea and vomiting left sided abd pain, n/v TECHNIQUE: Multiaxial CT images of the abdomen and pelvis were performed following the IV administration of 120 cc of Optiray, A dose lowering technique was utilized adhering to the principles of ALARA. COMPARISON STUDY: 12/15/2019 FINDINGS: Mild cardiomegaly. Clear lung bases. No pneumatosis or pneumoperitoneum. Unremarkable spleen, moderately atrophic pancreas and adrenal glands. Cholelithiasis. Probable hepatic steatosis. Patency of the hepatic and portal veins. Nonspecific bilateral perinephric stranding. No hydronephrosis. The urinary bladder wall thickening with partial collapse. Prostatomegaly. Atherosclerosis of the aorta. No lymphadenopathy. Circumferential wall thickening of the distal esophagus with mild periesophageal stranding. Mild thickening at the gastroesophageal junction. No bowel obstruction. Colonic diverticulosis. Normal appendix. Injection granulomata in the subcutaneous anterior abdominal wall. Subcentimeter gastrohepatic and periesophageal lymph nodes. No acute fracture. Degenerative changes of the spine, pelvis and hips. IMPRESSION: 1. Nonspecific wall thickening of the distal esophagus and gastroesophageal junction. Findings may be infectious or inflammatory however could be further evaluated with endoscopy to exclude an underlying lesion. 2. Subcentimeter periesophageal and gastrohepatic lymph nodes. 3. No bowel obstruction. 4. Cholelithiasis. 5. Additional findings as above. ACT 112: Negative or not required by law. The above report was generated using voice recognition software. It may contain grammatical, syntax or spelling errors. Electronically signed by: Maksim Costa M.D. 10/10/2022 7:02 PM Code Status & VTE Plan Code Status Full code VTE Prophylaxis Plan VTE Prophylaxis will be ordered: Yes PG Care Time/CCT Total # of Minutes Spent Total Time Spent with Patient: Total time spent is greater than 50% in coordination of care (as documented) at patient's floor/unit and/or counseling patient: Coding Level of Care Code 78585 INT INP/OBS CARE 375MIN Diagnoses Gastro-esophageal reflux disease with esophagitis K21.00 Nausea and vomiting R11.2 Diffuse abdominal pain R10.84 JEMAL (acute kidney injury) N17.9 Dyslipidemia E78.5 Hypertension I10 Hypothyroidism E03.9 Proliferative diabetic retinopathy associated with type 2 diabetes mellitus E11.3599 Diabetic peripheral neuropathy associated with type 2 diabetes mellitus E11.42 Hypercalcemia E83.52
[2022-10-10 21:24] LABS: Albumin Level 3.7 gm/dl (3.4-5.0); BUN Creatinine Ratio 15.1 (10-20); Calcium 10.5 mg/dl (8.6-10.3); Creatinine Clr Calc Pharmacy 48.7 ml/min; Est GFR (African American) 52.3 ml/min; Est GFR (Non-African American) 45.1 ml/min; Phosphorus 4.7 mg/dl (2.5-4.9); Potassium 4.1 mmol/L (3.5-5.1)
[2022-10-10] MEDS ORDERED: DEXTROSE 50% 50 ML SYRINGE IV PRN (22:40)
[2022-10-10] MEDS ORDERED: ACETAMINOPHEN 325 MG TAB PO PRN (22:40)
[2022-10-10] MEDS ORDERED: GLUCOSE 40% GEL 15 GM TUBE PO PRN (22:40)
[2022-10-10] MEDS ORDERED: GLUCOSE 10 TAB/TUBE PO PRN (22:40)
[2022-10-10] MEDS ORDERED: CARBOHYDRATES FOR HYPOGLYCEMIA PO PRN (22:40)
[2022-10-10] MEDS ORDERED: GLUCAGON FOR INJ 1 MG VIAL SQ PRN (22:40)
[2022-10-10] MEDS ORDERED: INSULIN ASPART PER UNIT CHARGE SC SCH (22:40)
[2022-10-10] MEDS: SODIUM CHLORIDE 0.9% 1000ML 1,000 ML IV SCH (23:19)
[2022-10-11] MEDS ORDERED: Nursing to Pharmacy Communication SCH ×2 (07:15→14:00)
[2022-10-11 07:22] LABS: Basophils # (auto) 0.04 K/uL (0-0.2); Basophils % (auto) 0.7 %; Eosinophils % (auto) 1.7 %; Hematocrit (blood only) 33.6 % (42.0-52.0); Hemoglobin 11.9 g/dl (14.0-18.0); Immature Granulocytes # (auto) 0.02 K/uL (0.01-0.20); Immature Granulocytes % (auto) 0.3 %; Lymphocytes # (auto) 1.57 K/uL (1.2-3.4); Lymphocytes % (auto) 26.3 %; Mean Corpuscular Hemoglobin 32.2 pg (25.0-34.0); Mean Corpuscular Hgb Conc 35.4 g/dL (32.0-36.0); Mean Corpuscular Volume 90.8 fL (80.0-100.0); Mean Platelet Volume 12.1 fL (9.4-12.4); Monocytes # (auto) 0.72 K/uL (0.11-0.59); Neutrophils # (auto) 3.53 K/uL (1.40-6.50); Platelet Count 154 K/uL (130-400); RDW Coefficient of Variation 12.4 % (11.5-14.5); RDW Standard Deviation 40.9 fL (36.4-46.3); White Blood Count 5.98 K/ul (4.8-10.8)
[2022-10-11 07:33] LABS: Albumin Globulin Ratio 1.7 (0.9-2); Albumin Level 3.4 gm/dl (3.4-5.0); BUN Creatinine Ratio 14.9 (10-20); Bilirubin,Total 0.6 mg/dl (0.2-1.0); Creatinine Clr Calc Pharmacy 46.3 ml/min; Est GFR (African American) 48.8 ml/min; Est GFR (Non-African American) 42.1 ml/min; Magnesium 1.2 mg/dl (1.7-2.4); Potassium 4.3 mmol/L (3.5-5.1); Total Protein 5.4 gm/dl (6.0-8.3)
[2022-10-11] MEDS: INSULIN ASPART PER UNIT CHARGE SC SCH ×4 (07:57→20:34)
[2022-10-11 08:08] LABS: Estimated Average Glucose 220 mg/dl; Hemoglobin A1C 9.3 % (4.5-5.6)
[2022-10-11] MEDS: PANTOprazole 40 MG in SYRINGE 0 ML IV SCH ×2 (09:14→20:34)
[2022-10-11] MEDS: SODIUM CHLORIDE 0.9% 1000ML 1,000 ML IV SCH ×2 (09:14→20:34)
[2022-10-11] MEDS: MAGNESIUM SULFATE / D5W 1 GM/100 ML BAG IV SCH ×3 (09:18→15:18)
--- NOTE | 2022-10-11 10:58 | Gastrointestinal Consultation ---
Date of Consultation October 11, 2022 Assessment & Plan (1) Abnormal CT scan, esophagus: -Continue IV Protonix 40 mg BID -Keep NPO -Proceed with EGD 10/11/22 for further evaluation Supervising Physician Co-Signing Physician Notes Agree with LASHAY Soto as above Abd: Soft, tender mid-epigastric area, ND, +BS Continue current therapy and supportive care Proceed with EGD today History of Present Illness Reason for Consultation: Abnormal CT esophagus, n/v Attending Physician: Tima Brooke History of Present Illness Patient is a 72 yo male with PMH of GERD, HLD, DM2 with retinopathy, hypothyroidism, HTN, PVD, & obesity who presented to the ED with nausea, vomiting and abdominal discomfort. Patient notes that he felt that he developed symptoms after eating an unusual meal with shrimp. He notes that the nausea and vomiting persisted and prompted him to seek evaluation. A CT abdomen/pelvis indicated wall thickening of the distal esophagus/GEJ with gastrohepatic and periesophageal lymph nodes. He reports a history of GERD, but notes that it only was a problem in the past when he would drink alcohol in excess. He notes that recently, however, his GERD has worsened and he has found himself utilizing several OTC remedies including Pepcid, Tums, & Pepto Bismol. Patient notes his vomiting has resolved since admission. He continues to report some epigastric discomfort today. He denies dysphagia. He is presently on IV Protonix 40 mg BID during this admission. No family history of GI malignancy. Patient has a history of smokeless tobacco. He denies any NSAID use. He has not consumed solids or liquids since 10/10/22. Allergies Allergy/AdvReac Type Severity Reaction Status Date / Time No Known Drug Allergies Allergy Verified 10/10/22 18:45 Home Medications Medication Instructions Recorded Confirmed Type cholecalciferol (vitamin D3) 125 5,000 units PO DAILY 12/03/18 10/10/22 History mcg (5,000 unit) capsule hydrochlorothiazide 25 mg tablet 25 mg PO DAILY #30 tabs 12/03/18 10/10/22 History lisinopril 40 mg tablet 40 mg PO DAILY #1 tab 12/03/18 10/10/22 History metformin 1,000 mg tablet 1,000 mg PO BID 12/03/18 10/10/22 History aspirin 81 mg tablet 81 mg PO DAILY 08/09/20 10/10/22 History cyanocobalamin (vitamin B-12) 1,000 mcg PO DAILY 08/09/20 10/10/22 History 1,000 mcg tablet insulin aspart U-100 100 unit/mL 18 unit subcut BID 11/26/20 10/10/22 History subcutaneous solution (Novolog U-100 Insulin aspart) insulin glargine 100 unit/mL 16 unit subcut HS 11/26/20 10/10/22 History subcutaneous solution (Lantus U-100 Insulin) blood sugar diagnostic (Accu-Chek 01/23/22 10/10/22 History Guide test strips) gabapentin 1 ea PO BID 01/23/22 10/10/22 History insulin syringe-needle U-100 0.5 #10 ea 01/23/22 10/10/22 History mL 31 gauge x 5/16" (BD Insulin Syringe Ultra-Fine) levothyroxine 88 mcg tablet 88 mcg PO QAM #90 tabs 02/07/22 10/10/22 Rx ezetimibe 10 mg tablet 10 mg PO DAILY #90 tabs 08/14/22 10/10/22 Rx simvastatin 80 mg tablet 80 mg PO DAILY 08/14/22 10/10/22 History Patient History Medical History (Updated 10/11/22 @ 11:08 by Darci Garcia MD) Encounter for pre-operative examination Surgical History History of lithotripsy S/P carpal tunnel release S/P wisdom tooth extraction Family History Unknown Cancer Father Diabetes Brother Colorectal cancer Denies family history of Ovarian cancer Prostate cancer Myocardial infarction Breast cancer Social History Smoking Status: Never smoker Second Hand Exposure: No; Do You Dip or Chew Tobacco: No; Hx Alcohol Use: Yes Alcohol type: beer Alcohol Intake Frequency: 2-4 x/Month Alcohol Intake Frequency Comment: 1-2 beers a week Hx Substance Use: No Preferred Language: Serbian Communication Ability: Effective Visual Impairment: No Limitations Hearing Ability: Normal 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 Beliefs That Will Affect Care: None marital status: Current Living Situation: Spouse current occupational status: retired current occupation: used to drive truck Feels Safe at Home: Yes Childhood Exposure to Second-Hand Smoke: No Diet: regular caffeine: No during the past year weight has: remained stable Dental Care, Regularly: No Physical Activity Frequency: Does not Exercise Seatbelt Use: always Sunscreen Use: Yes Assistive Devices: Denture - Upper, Denture - Lower and Glasses Review of Systems Constitutional: no fever and no chills Respiratory: no cough and no dyspnea Cardiovascular: no chest pain Gastrointestinal: + abdominal pain, + heartburn and + nausea; no coffee ground emesis, no hematemesis, no dysphagia and no melena Integumentary: no rash Psychiatric: no problem reported Hematologic / Lymphatic: no unexplained weight loss Physical Exam Constitutional: well developed Respiratory: normal respiratory effort Cardiovascular: Rate/Rhythm: regular rate Gastrointestinal (Abdomen): normal bowel sounds, soft, nontender, no hepatosplenomegaly Psychiatric: Orientation: alert and oriented x 3 Results & Data Vital Signs (Past 12 Hours) Vital Signs Temp Pulse Pulse Pulse Resp BP Pulse Ox 10/11/22 07:30 73 10/11/22 07:58 37.0 C 58 L 20 123/65 96 10/11/22 03:33 95 10/11/22 03:11 37.0 C 64 18 130/56 L 91 10/11/22 00:51 66 10/10/22 23:28 37 C 64 18 185/64 H 96 O2 Del Method 10/11/22 07:30 10/11/22 07:58 Room Air 10/11/22 03:33 Room Air 10/11/22 03:11 Room Air 10/11/22 00:51 10/10/22 23:28 Room Air PG Care Time/CCT Total # of Minutes Spent Total Time Spent with Patient: Total time spent is greater than 50% in coordination of care (as documented) at patient's floor/unit and/or counseling patient: Coding Level of Care Code 42222 INT INP/OBS CARE 3/75MIN Diagnoses Abnormal CT scan, esophagus R93.3
--- NOTE | 2022-10-11 11:09 | Anesthesiology Consultation ---
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 Consults Requested none ASA ASA3 Proposed Anesthesia Anesthesia Type: MAC History Height/Weight Height: 5 ft 6 in Weight: 101.6 kg Allergies Allergy/AdvReac Type Severity Reaction Status Date / Time No Known Drug Allergies Allergy Verified 10/10/22 18:45 Medications Home Medications Medication Instructions Recorded Confirmed Last Taken cholecalciferol (vitamin D3) 125 5,000 units PO DAILY 12/03/18 10/10/22 10/10/22 mcg (5,000 unit) capsule hydrochlorothiazide 25 mg tablet 25 mg PO DAILY #30 tabs 12/03/18 10/10/22 10/10/22 lisinopril 40 mg tablet 40 mg PO DAILY #1 tab 12/03/18 10/10/22 10/10/22 metformin 1,000 mg tablet 1,000 mg PO BID 12/03/18 10/10/22 10/10/22 aspirin 81 mg tablet 81 mg PO DAILY 08/09/20 10/10/22 10/10/22 cyanocobalamin (vitamin B-12) 1,000 mcg PO DAILY 08/09/20 10/10/22 10/10/22 1,000 mcg tablet insulin aspart U-100 100 unit/mL 18 unit subcut BID 11/26/20 10/10/22 10/10/22 subcutaneous solution (Novolog U-100 Insulin aspart) insulin glargine 100 unit/mL 16 unit subcut HS 11/26/20 10/10/22 10/09/22 subcutaneous solution (Lantus U-100 Insulin) blood sugar diagnostic (Accu-Chek 01/23/22 10/10/22 Unknown Guide test strips) gabapentin 1 ea PO BID 01/23/22 10/10/22 10/10/22 insulin syringe-needle U-100 0.5 #10 ea 01/23/22 10/10/22 Unknown mL 31 gauge x 5/16" (BD Insulin Syringe Ultra-Fine) levothyroxine 88 mcg tablet 88 mcg PO QAM #90 tabs 02/07/22 10/10/22 10/10/22 ezetimibe 10 mg tablet 10 mg PO DAILY #90 tabs 0410/10/22 10/10/22 simvastatin 80 mg tablet 80 mg PO DAILY 08/14/22 10/10/22 10/09/22 Active Medications Generic Name Dose Route Start Last Admin Trade Name Tesha PRN Reason Stop Dose Admin Pantoprazole Sodium 40 mg/ 10 mls @ 5 mls/min 10/11/22 09:00 10/11/22 09:14 Syringe IV 11/10/22 08:59 5 mls/min BID TAVO Administration Sodium Chloride 1,000 mls @ 100 mls/hr 10/10/22 22:40 10/11/22 09:14 Nss 1000ml IV 11/09/22 22:39 100 mls/hr .Q10H TAVO Administration Magnesium Sulfate/Dextrose 1 gm in 100 mls @ 50 mls/hr 10/11/22 09:00 10/11/22 09:18 Magnesium Sulfate / D5w IV 10/11/22 14:59 50 mls/hr Q2H TAVO Administration Insulin Aspart 0 units 10/11/22 07:15 10/11/22 07:57 Insulin Aspart Per Unit Charge SC 11/09/22 22:39 Not Given Q6 TAVO Past Medical History Medical History (Updated 10/11/22 @ 11:08 by Darci Garcia MD) Encounter for pre-operative examination Past Family History Family History Unknown Cancer Father Diabetes Brother Colorectal cancer Denies family history of Ovarian cancer Prostate cancer Myocardial infarction Breast cancer Past Surgical History Surgical History History of lithotripsy S/P carpal tunnel release S/P wisdom tooth extraction Social History Smoking Status: Never smoker Do You Dip or Chew Tobacco: No Hx Alcohol Use: Yes Alcohol type: beer alcohol intake frequency: a few times a month Hx Substance Use: No Physical Exam Vital Signs Last Vital Signs Temp 37.0 C 10/11/22 07:58 Pulse 58 L 10/11/22 07:58 Resp 20 10/11/22 07:58 BP 123/65 10/11/22 07:58 Pulse Ox 96 10/11/22 07:58 O2 Del Method Room Air 10/11/22 07:58 Testing Laboratory Results 10/11/22 06:37 10/11/22 06:37 Hemoglobin A1c 9.3 % (4.5-5.6) H 10/11/22 06:37 Urine Color Yellow 10/10/22 19:50 Urine Appearance Clear (Clear) 10/10/22 19:50 Urine pH 5.0 (4.5-7.5) 10/10/22 19:50 Ur Specific [place] > 1.045 (1.000-1.030) H 10/10/22 19:50 Urine Protein 1+ (Negative) H 10/10/22 19:50 Urine Glucose (UA) Negative (Negative) 10/10/22 19:50 Urine Ketones Negative (Negative) 10/10/22 19:50 Urine Nitrite Negative (Negative) 10/10/22 19:50 Ur Leukocyte Esterase Negative (Negative) 10/10/22 19:50 Urine WBC (Auto) 1-5 /hpf (0-5) 10/10/22 19:50 Urine RBC (Auto) 0-4 /hpf (0-4) 10/10/22 19:50 U Hyaline Cast (Auto) 1-5 /lpf (0-5) 10/10/22 19:50 U Epithel Cells (Auto) 10-20 /lpf (0-5) H 10/10/22 19:50 Urine Bacteria (Auto) Negative (Negative) 10/10/22 19:50 10/11/22 07:03 POC Glucose 148 H Electrocardiogram Date: 10/10/2210-Oct-2022 16:00:21 [facility]-EDSTAT ROUTINE RETRIEVAL Normal sinus rhythm Normal ECG When compared with ECG of 27-OCT-2013 07:57, No significant change was found. Vent rate 73.
[2022-10-11] MEDS ORDERED: PROPOFOL IV EMULSION 10 MG/ML 20 ML VIAL IV ONE (12:05)
[2022-10-11] MEDS ORDERED: LIDOCAINE 2% 2 ML VIAL/AMP(20MG/ML) INFIL ONE (12:05)
--- NOTE | 2022-10-11 12:26 | GI REPORT ---
Patient Name: Jerry Beck Procedure Date: 10/11/2022 12:11 PM Date of : 1950 Admit Type: Inpatient Age: 72 Gender: Male Attending MD: Carlos Hoover DO, Procedure: Upper GI endoscopy Providers: Carlos Hoover DO Referring MD: Tima Brooke MD Indications: Abnormal CT of the GI tract Medicines: Monitored Anesthesia Care Complications: No immediate complications. Estimated Blood Loss: Estimated blood loss: none. Procedure: Pre-Anesthesia Assessment: - Prior to the procedure, a History and Physical was performed, and patient medications and allergies were reviewed. The patient's tolerance of previous anesthesia was also reviewed. The risks and benefits of the procedure and the sedation options and risks were discussed with the patient. All questions were answered, and informed consent was obtained. Prior Anticoagulants: The patient has taken no anticoagulant or antiplatelet agents except for aspirin. ASA Grade Assessment: III - A patient with severe systemic disease. After reviewing the risks and benefits, the patient was deemed in satisfactory condition to undergo the procedure. After obtaining informed consent, the endoscope was passed under direct vision. Throughout the procedure, the patient's blood pressure, pulse, and oxygen saturations were monitored continuously. The Endoscope was introduced through the mouth, and advanced to the second part of duodenum. The upper GI endoscopy was accomplished without difficulty. The patient tolerated the procedure well. Findings: Mildly severe esophagitis with no bleeding was found 32 to 38 cm from the incisors. Localized mild inflammation characterized by erythema was found in the gastric antrum. Three non-bleeding cratered gastric ulcers with no stigmata of bleeding were found in the gastric antrum. The largest lesion was 6 mm in largest dimension. Biopsies were taken with a cold forceps for histology. The examined duodenum was normal. Impression: - Mildly severe reflux esophagitis with no bleeding. - Gastritis. - Non-bleeding gastric ulcers with no stigmata of bleeding. Biopsied. - Normal examined duodenum. Recommendation: - Return patient to hospital bates for ongoing care. - Advance diet as tolerated. - Use Protonix (pantoprazole) 40 mg PO BID. - Await pathology results. - Return to GI office in 2 weeks. Carlos Hoover DO 10/11/2022 12:25:27 PM This report has been signed electronically. Note Initiated On: 10/11/2022 12:11 PM Number of Addenda: 0 I attest to the content of the Intraoperative Record and orders documented therein, exceptions below {[id number]}
--- NOTE | 2022-10-11 13:21 | Hospitalist Progress Note ---
Date of Service October 11, 2022 Assessment & Plan (1) Nausea and vomiting: Plan: Acute/stable with associated abdominal pain - moderate risk - CTAP nonspecific wall thickening of distal esophagus and GE junction - NPO with IVF and antiemetics - Without n/v today - IV PPI 40mg BID - GI consulted, appreciate assistance, for EGD today - EGD findings with "mildly severe reflux esophagitis with no bleeding, gastritis, and nonbleeding gastric ulcers with no stigmata of bleeding" - Following return to floor, start on clear liquids and advance as tolerated to diabetic (2) Gastro-esophageal reflux disease with esophagitis: Plan: Acute on chronic/unstable - low to moderate risk - Continue IV PPI (3) JEMAL (acute kidney injury): Plan: Acute/unstable - low risk - Baseline creatinine 1.2-1.4 - CMP reviewed today, creatinine 1.6 - Monitor and adjust meds when needed (4) Hypertension: Plan: Chronic/stable - Well controlled - Lisinopril & HCTZ on hold - Continue NSS @ 100 ml/hr (5) Hypothyroidism: Plan: Chronic/stable - Resume levothyroxine (6) Diabetes type 2, controlled: Plan: Chronic/stable - Currently NPO with q6h BSG checks + SSI - Lantus held - Will resume Lantus once diet advanced Plan Magnesium level reviewed, markedly low at 1.2, IV replacement has been ordered. Will repeat level in AM along with chemistry. Transition to med/surg. Advance diet. Anticipate home tomorrow. Plan to be d/w Dr. Brooke. Admission and Anticipated Discharge Date Admission Date: October 10, 2022 Subjective Patient was seen on rounds this morning. He reports no further n/v. No significant abdominal pain. No fever/chills. He is starting to want to try to ea t. No cp or dyspnea. Physical Exam Physical Exam: GENERAL: 72 yo well-developed, well-nourished M. AAOx4. NAD. LUNGS: Clear to auscultation bilaterally w/o W/R/R. CARDIOVASCULAR: Regular rate and rhythm ABDOMEN: Soft, non-tender and non-distended. No palpable masses. Bowel sounds normoactive x 4 quad. Results & Data Results & Data Vital Signs (Past 12 Hours) Vital Signs Temp Pulse Pulse Resp BP Pulse Ox O2 Del Method 10/11/22 12:54 58 L 16 135/60 97 Room Air 10/11/22 12:39 58 L 16 124/59 L 96 Room Air 10/11/22 12:24 64 18 107/54 L 97 Room Air 10/11/22 11:48 36.8 C 63 16 162/52 H 99 Room Air 10/11/22 07:30 73 10/11/22 07:58 37.0 C 58 L 20 123/65 96 Room Air 10/11/22 03:33 95 Room Air 10/11/22 03:11 37.0 C 64 18 130/56 L 91 Room Air Laboratory Results 10/11/22 06:37 10/11/22 06:37 PG Care Time/CCT Total # of Minutes Spent Total Time Spent with Patient: Total time spent is greater than 50% in coordination of care (as documented) at patient's floor/unit and/or counseling patient: Coding Level of Care Code 08904 SUB INP/OBS CARE 2/35MIN Diagnoses Nausea and vomiting R11.2 Gastro-esophageal reflux disease with esophagitis K21.00 JEMAL (acute kidney injury) N17.9 Hypertension I10 Hypothyroidism E03.9 Diabetes type 2, controlled E11.9
--- NOTE | 2022-10-11 15:01 | Anesthesiology Progress Note ---
Date of Service October 11, 2022 Anesthesia Post Procedure Vital Signs Vital Signs: Temp Pulse Pulse Pulse Resp BP BP 10/11/22 13:22 36.4 C L 59 L 18 131/52 L 10/11/22 12:54 58 L 16 135/60 10/11/22 12:39 58 L 16 124/59 L 10/11/22 12:24 64 18 107/54 L 10/11/22 11:48 36.8 C 63 16 162/52 H 10/11/22 07:30 73 10/11/22 07:58 37.0 C 58 L 20 123/65 10/11/22 03:33 10/11/22 03:11 37.0 C 64 18 130/56 L 10/11/22 00:51 66 10/10/22 23:28 37 C 64 18 185/64 H 10/10/22 22:40 37.0 C 64 18 185/64 H 10/10/22 20:44 85 18 10/10/22 18:19 78 20 10/10/22 17:34 77 20 10/10/22 16:28 75 20 10/10/22 15:50 36.1 C L 89 18 128/72 BP Pulse Ox O2 Del Method 10/11/22 13:22 95 Room Air 10/11/22 12:54 97 Room Air 10/11/22 12:39 96 Room Air 10/11/22 12:24 97 Room Air 10/11/22 11:48 99 Room Air 10/11/22 07:30 10/11/22 07:58 96 Room Air 10/11/22 03:33 95 Room Air 10/11/22 03:11 91 Room Air 10/11/22 00:51 10/10/22 23:28 96 Room Air 10/10/22 22:40 96 Room Air 10/10/22 20:44 164/65 H 96 Room Air 10/10/22 18:19 142/65 H 99 Room Air 10/10/22 17:34 137/56 L 98 Room Air 10/10/22 16:28 138/62 96 Room Air 10/10/22 15:50 98 Room Air Pain Intensity Abdomen: Pain Intensity: 0 Transfer of Care Handoff Completed per policy Notes Mental Status: alert / awake / arousable and participated in evaluation Patient Amnestic to Procedure: Yes Nausea / Vomiting: adequately controlled Pain: adequately controlled Airway Patency, RR, SpO2: stable & adequate BP & HR: stable & adequate Hydration State: stable & adequate Anesthetic Complications: no major complications apparent
[2022-10-11] MEDS ORDERED: INSULIN ASPART PER UNIT CHARGE SC SCH (15:15)
--- NOTE | 2022-10-11 15:31 | Electrocardiogram Report ---
Test Reason : Blood Pressure : / mmHG Vent. Rate : 073 BPM Atrial Rate : 073 BPM P-R Int : 132 ms QRS Dur : 086 ms QT Int : 334 ms P-R-T Axes : 041 061 005 degrees QTc Int : 367 ms Normal sinus rhythm Normal ECG When compared with ECG of 27-OCT-2013 07:57, No significant change was found Confirmed by Alexander Jacinto ([id number]) on 10/11/2022 3:30:45 PM Referred By: Confirmed By:Alexander Jacinto
[2022-10-12] MEDS: SODIUM CHLORIDE 0.9% 1000ML 1,000 ML IV SCH (05:47)
[2022-10-12] MEDS ORDERED: LEVOTHYROXINE SODIUM 88 MCG TABLET PO SCH (06:30)
[2022-10-12 07:41] LABS: Albumin Globulin Ratio 1.4 (0.9-2); Albumin Level 3.2 gm/dl (3.4-5.0); BUN Creatinine Ratio 13.4 (10-20); Bilirubin,Total 0.5 mg/dl (0.2-1.0); Calcium 8.9 mg/dl (8.6-10.3); Creatinine Clr Calc Pharmacy 58.7 ml/min; Est GFR (Non-African American) 56.1 ml/min; Globulin 2.3 gm/dl (2.5-4.0); Magnesium 1.3 mg/dl (1.7-2.4); Potassium 4.1 mmol/L (3.5-5.1); Total Protein 5.5 gm/dl (6.0-8.3)
[2022-10-12] MEDS: PANTOprazole 40 MG in SYRINGE 0 ML IV SCH (08:30)
[2022-10-12] MEDS: INSULIN ASPART PER UNIT CHARGE SC SCH ×2 (08:35→11:54)
[2022-10-12] MEDS ORDERED: EZETIMIBE 10 MG TABLET PO SCH (09:00)
[2022-10-12] MEDS ORDERED: ASPIRIN 81 MG ECTAB PO SCH (09:00)
[2022-10-12] MEDS ORDERED: SIMVASTATIN 80 MG TAB PO SCH (09:00)
[2022-10-12] MEDS: MAGNESIUM SULFATE / D5W 1 GM/100 ML BAG IV SCH ×3 (09:50→13:10)
--- NOTE | 2022-10-12 12:12 | Discharge Summary ---
Date of Service October 12, 2022 Admission HPI Per Admitting Provider The patient is a 72-year-old male with a past medical history including GERD, vitamin D deficiency, proliferative diabetic retinopathy, diabetes mellitus, hypothyroidism, hypertension, diabetic peripheral neuropathy, peripheral vascular disease, PAD, obesity and chronic low back pain. Patient presents to the emergency department with with persistent nausea and vomiting for the past 5 days that began a few hours after eating shrimp at a local restaurant. Significant laboratories: Glucose 125, creatinine 1.63, calcium 12.1 which improved to 10.[address] of abdomen and pelvis showed thickening of the distal esophagus and GE junction, with suggestion for EGD for confirmation, and paraesophageal and gastrohepatic lymph node enlargement. From the ED the patient received the following: Normal saline 2 L, morphine sulfate 4 mg IV, Zofran 4 mg IV. and famotidine 20 mg IV Principal Diagnosis Esophagitis and gastritis Discharge Exam GENERAL: 72 yo well-developed, well-nourished M. AAOx4. NAD. LUNGS: Clear to auscultation bilaterally w/o W/R/R. CARDIOVASCULAR: Regular rate and rhythm ABDOMEN: Soft, non-tender and non-distended. No palpable masses. Bowel sounds normoactive x 4 quad. Discharge Data Allergies Allergy/AdvReac Type Severity Reaction Status Date / Time No Known Drug Allergies Allergy Verified 10/10/22 18:45 Consultations 10/10/22 20:07 ED Decision to Admit Stat 10/10/22 22:40 Consult Gastroenterology Routine Procedures Performed Operation Date: 10/11/22 16:30 Actual Procedures p EGD Biopsy Cytology - Carlos Pathak Case, DO Ordered Studies Abdomen/Pelvis CT 10/10/22 16:[address] WITH IV CONTRAST CT DOSE: 1382.12 mGy.cm HISTORY: Acute left-sided abdominal pain with nausea and vomiting left sided abd pain, n/v TECHNIQUE: Multiaxial CT images of the abdomen and pelvis were performed following the IV administration of 120 cc of Optiray, A dose lowering technique was utilized adhering to the principles of ALARA. COMPARISON STUDY: 12/15/2019 FINDINGS: Mild cardiomegaly. Clear lung bases. No pneumatosis or pneumoperitoneum. Unremarkable spleen, moderately atrophic pancreas and adrenal glands. Cholelithiasis. Probable hepatic steatosis. Patency of the hepatic and portal veins. Nonspecific bilateral perinephric stranding. No hydronephrosis. The urinary bladder wall thickening with partial collapse. Prostatomegaly. Atherosclerosis of the aorta. No lymphadenopathy. Circumferential wall thickening of the distal esophagus with mild periesophageal stranding. Mild thickening at the gastroesophageal junction. No bowel obstruction. Colonic diverticulosis. Normal appendix. Injection granulomata in the subcutaneous anterior abdominal wall. Subcentimeter gastrohepatic and periesophageal lymph nodes. No acute fracture. Degenerative changes of the spine, pelvis and hips. IMPRESSION: 1. Nonspecific wall thickening of the distal esophagus and gastroesophageal junction. Findings may be infectious or inflammatory however could be further evaluated with endoscopy to exclude an underlying lesion. 2. Subcentimeter periesophageal and gastrohepatic lymph nodes. 3. No bowel obstruction. 4. Cholelithiasis. 5. Additional findings as above. ACT 112: Negative or not required by law. The above report was generated using voice recognition software. It may contain grammatical, syntax or spelling errors. Electronically signed by: Maksim Costa M.D. 10/10/2022 7:02 PM Hospital Course (1) Nausea and vomiting: Acute/stable with associated abdominal pain - moderate risk - CTAP nonspecific wall thickening of distal esophagus and GE junction - Kept NPO with IVF, antiemetics, and IV PPI therapy - GI consulted, appreciate assistance, arranged for EGD which was performed on 10/11 - EGD findings with "mildly severe reflux esophagitis with no bleeding, gastritis, and nonbleeding gastric ulcers with no stigmata of bleeding" - Started on clear liquid diet following procedure - Without n/v for the past 48 hours - CLD tolerated and advanced to full liq this AM, thus far tolerating without issue - Advanced to regular (diabetic) diet for lunch, tolerated well therefore plan for dc home today (2) Gastro-esophageal reflux disease with esophagitis: - Started on IV PPI 40mg BID, will convert to oral upon d/c, rx provided - Will need GI f/u to review biopsy results taken during EGD (3) JEMAL (acute kidney injury): JEMAL on CKD - Baseline creatinine 1.2-1.4, with an admitting Cr of 1.6 - CMP reviewed today, creatinine 1.2 - Monitor and adjust meds when needed (4) Hypertension: - Well controlled - Lisinopril & HCTZ placed on hold d/t minimal JEMAL - Given NSS @ 100 ml/hr and now Cr within baseline - Would resume Lisinopril but reduce dose to 20mg daily and stop HCTZ - Further adjustments will be deferred to PCP (5) Hypothyroidism: - Resume levothyroxine (6) Diabetes type 2, controlled: - While NPO with q6h BSG checks + SSI - Lantus held - Will resume Lantus once diet advanced Plan Persistent hypomagnesemia despite 3g IV mag sulfate given yesterday for level of 1.2. Today level is 1.3. Additional replacement ordered. Will need to initiate oral supplementation and increase dietary increase of magnesium. Follow up with PCP and GI as outpatient. He is otherwise medically and hemodynamically stable for discharge home today. Plan has been d/w Dr. Boudreaux who is in agreement with aforementioned. Total Time Total Time Spent Total Time Spent (In Minutes): 35 minutes Discharge Plan Discharge Items Patient Disposition: Home - Self-Care Reason For Visit: INTRACTABLE N/V Discharge Diagnosis: inflammation of the esophagus and stomach Condition on Discharge: Good Activity: Resume your previous activity Non-emergency contact: Primary Care Provider and Community Health Agent Call non-emergency contact if: you have any medication questions Follow-up/Referrals: Kojo Soria, [Primary Care Provider] - Diet: Carb Consistent or DM2 Addtl Attending Provider Instructions: You were hospitalized due to nausea and vomiting with an abnormal appearing esophagus on your CAT scan. You underwent an upper endoscopy (the camera that looked into your esophagus and stomach) and it was found that you have significant inflammation in your esophagus and stomach. You were also found to have an ulcer which was not bleeding but it was biopsied to determine if it was caused by bacteria. You have been started on a medicine called Protonix which is to help suppress production of stomach acid. This will help resolve the inflammation in your stomach. I would keep in mind that it is recommended that you limit the use of non-steroidal anti-inflammatory drugs such as Advil, Aleve, Ibuprofen, Motrin. If you need to take something for pain, I would recommend using Tylenol as the first option. You should avoid or limit eating foods that are highly acidic such as citrus fruits, red sauces, dark chocolate, and caffeinated products such as tea or coffee. Please follow up with GI within 1-2 weeks to review your biopsy results and f/u on your condition. It is recommended that you follow up with your family doctor within 1 week of discharge. You can resume taking your Metformin on 10/13/22. Your Lisinopril has been reduced to 20mg daily (previously 40mg daily). A new prescription has been sent to your pharmacy. Also, please stop taking Hydrochlorothiazide until you follow up with your family doctor. If you have any questions or concerns after you leave the hospital, you may call the nonemergency contact number listed on your discharge. In the event of a medical emergency, call 911. Pending Studies at Discharge: No Stand-Alone Forms: My [facility], Smoking Cessation Medications and DC Order Prescriptions: New pantoprazole 40 mg Tablet,Delayed Release (Dr/Ec) 40 mg PO BID Qty: 60 0RF magnesium oxide 400 mg magnesium tablet 400 mg PO BID Qty: 60 0RF lisinopril 20 mg tablet 20 mg PO DAILY Qty: 30 0RF Continued levothyroxine 88 mcg tablet 88 mcg PO QAM Qty: 90 3RF simvastatin 80 mg tablet 80 mg PO DAILY ezetimibe 10 mg tablet 10 mg PO DAILY Qty: 90 3RF aspirin 81 mg tablet 81 mg PO DAILY (DME) Accu-Chek Guide test strips Strip See Rx Instructions .Route Rx Instructions: Test blood sugar two times daily gabapentin 1 ea PO BID Rx Instructions: Pt unsure of dose cholecalciferol (vitamin D3) 5,000 unit capsule 5,000 units PO DAILY cyanocobalamin (vitamin B-12) 1,000 mcg tablet 1,000 mcg PO DAILY (DME) insulin syringe-needle U-100 [BD Insulin Syringe Ultra-Fine] 0.5 mL 31 gauge x 5/16" syringe See Rx Instructions .ROUTE .MEDSUPPLY Qty: 10 Rx Instructions: Inject insulin three times daily insulin aspart U-100 [Novolog U-100 Insulin aspart] 100 unit/mL solution 18 unit subcut BID Rx Instructions: Inject 18 units in the am and pm Lantus U-100 Insulin 100 unit/mL solution 16 unit subcut HS Held metformin 1,000 mg tablet 1,000 mg PO BID Hold Instructions: Resume on 10/13/22. Discontinued lisinopril 40 mg tablet 40 mg PO DAILY Qty: 1 hydrochlorothiazide 25 mg tablet 25 mg PO DAILY Qty: 30 Discharge Orders: Discharge Order (Routine); Ordered 10/12/22 Ordered By: Charisse Villaseñor Admission Data Admit Date/Time: 10/10/22 20:33 Attending Provider: Sunil Boudreaux Admit Provider: Juwan Marques Primary Care Provider: Kojo Soria Other Providers: Juwan Marques ; Tom Mena Other Interventions: Discharge Summary Assessment (RN) Last Done: 10/11/22 12:28 Coding Level of Care Code 81069 INP/OBS DISCH >30 MIN Diagnoses Nausea and vomiting R11.2 Gastro-esophageal reflux disease with esophagitis K21.00 JEMAL (acute kidney injury) N17.9 Hypertension I10 Hypothyroidism E03.9 Diabetes type 2, controlled E11.9
[2022-10-12] MEDS ORDERED: PANTOprazole 40 MG TAB PO SCH (21:00)
== END 2022-10-12 16:52 | disposition home or self-care (01) | DRG 392 ==
LOC: ED 15:49 → 2W 20:33 → SUATTDRO 20:33 → 2W 21:51